=== PATIENT | female | born 1950 | race Caucasian/White ===

== ENCOUNTER 2019-06-15 12:06 | Emergency (ER) | payer MEDICARE ==
[~2019-06-15] VITALS: Ht 157.5 cm; Wt 52.2 kg
[2019-06-15 12:08] VITALS: BP 183/96
== END 2019-06-15 13:46 | disposition home or self-care (01) ==
LOC: ED 12:36
DX: S52.502A Unspecified fracture of the lower end of left radius, initial encounter for closed fracture (principal); Z90.49 Acquired absence of other specified parts of digestive tract; W01.0XXA Fall on same level from slipping, tripping and stumbling without subsequent striking against object, initial encounter; Y93.01 Activity, walking, marching and hiking; Y92.89 Other specified places as the place of occurrence of the external cause; Y99.8 Other external cause status
CPT/HCPCS: 29125; 99283